=== PATIENT | female | born 1945 | race Caucasian/White ===

== ENCOUNTER → 2022-07-27 13:51 | Outpatient (BNVA) | payer MEDICARE, SELFPAY | PROVIDERS: PCP Internal Medicine; Referring Provider Internal Medicine Infectious Disease; Visit Provider Internal Medicine | DX: E23.7 Disorder of pituitary gland, unspecified (principal); E03.9 Hypothyroidism, unspecified; E23.6 Other disorders of pituitary gland; R63.4 Abnormal weight loss; Z79.890 Hormone replacement therapy; Z68.20 Body mass index [BMI] 20.0-20.9, adult | CPT/HCPCS: 99204 ==

== ENCOUNTER 2022-08-05 07:33 | Outpatient (CLI) | payer MEDICARE, SELFPAY ==
[2022-08-05 09:15] LABS: Free T4 Free Thyroxine 1.48 ng/dL (0.82-1.77)
[2022-08-05 09:17] LABS: Cortisol Random 20.39 ug/dL (2.47-19.5)
[2022-08-05 09:50] LABS: Prolactin 6.92 ng/mL (4.8-23.3)
[2022-08-09 16:06] LABS: IGF1 LC/MS 48 ng/mL (34-245); Z Score (Female) -1.4 SD (-2.0 - +2.0)
== END 2022-08-05 07:34 | disposition home or self-care (01) ==
PROVIDERS: PCP Internal Medicine; Visit Provider Internal Medicine
DX: E03.9 Hypothyroidism, unspecified (principal); E23.7 Disorder of pituitary gland, unspecified
CPT/HCPCS: 36415; 82533; 84146; 84305; 84439; 84443

== ENCOUNTER → 2022-10-31 10:30 | Outpatient (BNVA) | payer MEDICARE, SELFPAY | PROVIDERS: PCP Internal Medicine; Visit Provider Internal Medicine | DX: E23.6 Other disorders of pituitary gland (principal); E23.7 Disorder of pituitary gland, unspecified; R63.4 Abnormal weight loss; Z68.21 Body mass index [BMI] 21.0-21.9, adult | CPT/HCPCS: 99214 ==

== ENCOUNTER 2025-03-31 06:30 | Outpatient (RCR) | payer MEDICARE, SELFPAY | END 2025-04-29 23:59 | disposition home or self-care (01) | LOC: GPT 06:30 | PROVIDERS: Visit Provider Orthopaedic Surgery | DX: Z47.1 Aftercare following joint replacement surgery (principal); Z96.651 Presence of right artificial knee joint | CPT/HCPCS: 97110; 97161; 97530 ==

== ENCOUNTER 2025-05-22 12:40 | Outpatient (RCR) | payer MEDICARE, SELFPAY | END 2025-05-30 23:59 | disposition home or self-care (01) | LOC: GPT 12:40 | PROVIDERS: Visit Provider Orthopaedic Surgery | DX: Z47.1 Aftercare following joint replacement surgery (principal); Z96.651 Presence of right artificial knee joint | CPT/HCPCS: 97110; 97112; 97140; 97530 ==